=== PATIENT | female | born 1960 | race Caucasian/White ===

== ENCOUNTER → 2017-02-05 | Outpatient (CLI) | payer OTHER | LOC: MAMMO 08:25 | DX: Z12.31 Encounter for screening mammogram for malignant neoplasm of breast (principal) | CPT/HCPCS: G0202 ==

== ENCOUNTER → 2019-03-23 | Outpatient (CLI) | payer OTHER | LOC: MAMMO 08:19 | DX: Z12.31 Encounter for screening mammogram for malignant neoplasm of breast (principal) ==

== ENCOUNTER 2021-08-23 12:43 | Outpatient (RCR) | payer OTHER ==
[~2021-08-23] VITALS: Ht 162.6 cm; Wt 48.0 kg
[2021-08-23 13:00] VITALS: BP 114/95
[2021-08-27] MEDS ORDERED: AMOXICILLIN AND1 TA2 PO (14:19)
== END 2021-08-25 | disposition still patient (30) ==
LOC: AMSURD → EDSTATUS 12:45
DX: Z23 Encounter for immunization (principal); W55.01XA Bitten by cat, initial encounter
CPT/HCPCS: 90715

== ENCOUNTER 2021-08-31 08:28 | Outpatient (RCR) | payer OTHER ==
[2021-08-27 14:17] VITALS: BP 118/80
[~2021-08-31] VITALS: Ht 162.6 cm; Wt 48.0 kg
[~2021-08-31 08:28] MED LIST: AMOXICILLIN AND1 TA2 PO
== END 2021-09-25 | disposition home or self-care (01) ==
LOC: AMSURD
DX: Z23 Encounter for immunization (principal); W55.01XA Bitten by cat, initial encounter

== ENCOUNTER → 2022-05-29 | Outpatient (CLI) | payer BC | LOC: MAMMO 10:58 | DX: Z12.31 Encounter for screening mammogram for malignant neoplasm of breast (principal) ==

== ENCOUNTER → 2024-01-28 | Outpatient (CLI) | payer BC | LOC: MAMMO 14:30 | DX: Z12.31 Encounter for screening mammogram for malignant neoplasm of breast (principal) ==